=== PATIENT | female | born 1955 | race Caucasian/White ===

== ENCOUNTER 2025-07-13 09:28 | Inpatient (IN) | payer MEDICARE ==
[2025-07-12 08:51] LABS: Hematocrit 40.9 % (33.0-51.0); Hemoglobin 13.9 g/dL (11.5-16.0); Mean Corpuscular HGB Conc 34.0 g/dL (31.5-36.5); Mean Corpuscular Volume 93 fL (80-100); NRBC ABSOLUTE 0.00 K/mm3 (0.00-0.02); NRBC Auto 0.0 /100 WBC (0.0-0.2); Platelet Count 315 K/mm3 (150-400); RDW Coefficient Variation 12.5 % (11.7-14.2); RDW Standard Deviation 42.3 fL (35.1-46.3)
[2025-07-12 09:04] LABS: Prothrombin Time Results 11.3 Sec (9.7-11.5)
[2025-07-12 09:58] LABS: Anion Gap 7.0 mmol/L (3-11); Blood Urea Nitrogen 27.0 mg/dL (8-24); CO2, Blood 29.0 mmol/L (21-32); Calcium, Blood 9.3 mg/dL (8.5-10.1); Chloride, Blood 105.0 mmol/L (98-108); Creatinine, Blood 1.0 mg/dL (0.40-1.00); Glucose, Blood 117.0 mg/dL (70-99); Potassium, Blood 3.4 mmol/L (3.5-5.5); Sodium, Blood 138.0 mmol/L (136-145)
[2025-07-13] VITALS (19 sets, daily range): BP systolic 121–172; BP diastolic 64–89
[~2025-07-13] VITALS: Ht 165.1 cm; Wt 110.5 kg
[~2025-07-13 09:28] MED LIST: ATOR20 PO; CALCIUM 600-VI1 EAC7 PO; DYAZIDE 37.5-21 EACH PO; IBUP200 PO; LETR2.5 PO; LORA10ER PO; MELO7.5 PO; Vitamin D1000 UNI1 PO
--- NOTE | 2025-07-13 10:00 | NUR ---
Ambulatory in Day Surgery History, Chart, Medications and Allergies reviewed before start of procedure. Pre-Op teaching done. Pt verbalizes understanding.
[2025-07-13] MEDS ORDERED: Rocuronium Bromide 10 MG/ML 5ML Injection IV ONE ×2 (10:13→11:10)
[2025-07-13] MEDS ORDERED: FentaNYL Citrate 50 MCG/ML 2 ML Injection ONE ×2 (10:13→13:42)
[2025-07-13] MEDS ORDERED: Dexamethasone Sod Phos 10 MG/ML 1ML VIAL ONE (10:14)
[2025-07-13] MEDS ORDERED: Ondansetron HCl 2 MG / ML 2ML Vial ONE (10:14)
[2025-07-13] MEDS ORDERED: Bupivacaine 0.25% Epi 1:200000 30 ML Vial ONE (10:22)
[2025-07-13] MEDS ORDERED: CeFAZolin Sodium 2,000 MG in NS 100 ML IV SCH (10:35)
[2025-07-13] MEDS ORDERED: Phenylephrine HCl 100 MCG/ML-NS 10MLSYR (1MG/10ML) ONE (12:22)
[2025-07-13] MEDS ORDERED: Sugammadex Sodium 200 MG/2ML SDV (100 MG/ML) ONE (12:53)
[2025-07-13] MEDS ORDERED: Magnesium Hydroxide Conc 10 ML UDC PO PRN (13:40)
[2025-07-13] MEDS ORDERED: HYDROmorphone HCl/Pf 1MG SYR ONE (13:52)
[2025-07-13] MEDS ORDERED: OxyCODONE 5 mg/Acetamin 325 mg TABLET PO PRN (14:20)
--- NOTE | 2025-07-13 14:31 | NUR ---
ARRIVAL TO SURGICAL FLOOR PT ARRIVED TO FLOOR VIA GURCELESTE. A&O x4, VSS. HRR, LUNGS SOUNDS CLEAR. LAP SITES x6, C/D/I. BOWEL TONES HYPOACTIVE. WHITT CATH IN PLACE, DRAINING YELLOW URINE. DENIES N/V, IV FLUIDS INFUSING PER EMAR. DRINKS GIVEN, CALL LIGHT WITHIN REACH.
--- NOTE | 2025-07-13 17:50 | NUR ---
SHIFT SUMMARY POD 0 R PARTIAL NEPHRECTOMY. A&O x4, COMMUNICATED NEEDS EFFECTIVELY. VSS, HRR, LUNGS CLEAR. ABD LAP SITES x6, C/D/I. ABD TENDERNESS w/MINIMAL PAIN. ON CLEAR LIQUID DIET, TOLERATING WELL. IVF INFUSING PER EMAR. WHITT CATH DRAINING CLEAR YELLOW URINE. AMBULATES w/SBA, UP TO CHAIR CURRENTLY. CALL LIGHT WITHIN REACH.
[2025-07-13] MEDS ORDERED: Lactobacil 2-S.Thermo-Bifido 1 1 Cap PO SCH (21:00)
[2025-07-14 00:11] VITALS: BP 155/77
[2025-07-14 03:13] VITALS: BP 135/61
[2025-07-14 06:13] LABS: Hematocrit 38.4 % (33.0-51.0); Hemoglobin 13.1 g/dL (11.5-16.0); Mean Corpuscular HGB Conc 34.1 g/dL (31.5-36.5); Mean Corpuscular Volume 92 fL (80-100); NRBC ABSOLUTE 0.00 K/mm3 (0.00-0.02); NRBC Auto 0.0 /100 WBC (0.0-0.2); Platelet Count 323 K/mm3 (150-400); RDW Coefficient Variation 12.5 % (11.7-14.2); RDW Standard Deviation 42.2 fL (35.1-46.3)
[2025-07-14 06:35] LABS: Anion Gap 10.0 mmol/L (3-11); Blood Urea Nitrogen 23.0 mg/dL (8-24); CO2, Blood 27.0 mmol/L (21-32); Calcium, Blood 9.2 mg/dL (8.5-10.1); Chloride, Blood 102.0 mmol/L (98-108); Creatinine, Blood 1.15 mg/dL (0.40-1.00); Glucose, Blood 159.0 mg/dL (70-99); Potassium, Blood 3.6 mmol/L (3.5-5.5); Sodium, Blood 135.0 mmol/L (136-145)
--- NOTE | 2025-07-14 06:49 | NUR ---
SHIFT SUMMARY POD 1 S/P PARTIAL NEPHRECTOMY. PT A/OX4 WITH VSS. ABD INCISIONS/SITES CDI, NO DRAINAGE NOTED; CLOSED WITH TISSUE ADHESIVE. PT JASON CL DIET, DENIES N/V. DENIED NEED FOR PAIN MEDICATIONS. UP IN CHAIR AND AMBULATING SEVERAL TIMES IN HALLWAY. IVF INFUSING PER ORDERS. WHITT TO GRAVITY GRAIN, URINE LIGHT YELLOW IN COLOR. PT DENIES NEEDS, IS AWAKE IN ROOM WITH CALL LIGHT IN REACH
[2025-07-14 07:54] VITALS: BP 151/63
[2025-07-14] MEDS ORDERED: Calcium/Vit D 600 mg-400 Unit Tab PO SCH (09:00)
[2025-07-14] MEDS ORDERED: Triamter/HCthiazide 37.5/25 MG 1 Tab PO SCH (09:00)
[2025-07-14] MEDS ORDERED: Cholecalciferol 1000 Unit Tablet (=25MCG) PO SCH (09:00)
[2025-07-14 15:50] VITALS: BP 153/66
--- NOTE | 2025-07-14 17:40 | NUR ---
SHIFT SUMMARY POD 1 L PARTIAL NEPHRECTOMY. A&O x4, COMMUNICATES NEEDS EFFECTIVELY & CALLS APPROPRIATELY. VSS, HRR, LUNGS CLEAR. ABD LAP SITES x6, C/D/I. ABDOMINAL TENDERNESS w/PALPATION, BUT MINIMAL PAIN. REPORTS GAS PAINS, PASSING GAS & AWAITING POST OP BM. ADVANCED DIET TO REGULAR, TOLERATING WELL. WHITT CATH DRAINING CLEAR YELLOW URINE. AMBULATES IN HALLWAY & ROOM INDEPENDENTLY. CALL LIGHT WITHIN REACH.
[2025-07-14 19:33] VITALS: BP 164/69
--- NOTE | 2025-07-14 23:02 | NUR ---
TRANSFER PT ARRIVED FROM PCU2 TO SURGICAL FLOOR 218 AT APPROX 2130 TODAY. BEDSIDE REPORT COMPLETED FROM Consuelo RN PRIOR TO TRANSFER. PT A/OX4 WITH VSS. DENIES PAIN, SOB, CHEST PAIN OR N/T. OSTOMY APPLIANCE CDI, STOMA RED IN COLOR. JOLLY TO MIDLINE INTACT, OLD SHADOWING NOTED AND DRESSING COMPRESSED. JASON FULL LIQUID, DENIES N/V. HR SR AT 68BPM, PER HOME WORKER. PUREWICK IN PLACE TO SUCTION. IV NUTRITION INFUSING PER ORDERS TO EX DWELL, DRESSING CDI. PT HAS CALL LIGHT IN REACH AND DENIES NEEDS.
[2025-07-15 03:53] VITALS: BP 153/69
--- NOTE | 2025-07-15 03:56 | NUR ---
0354- CALLED DR FALCON ANSWERING SERVICE TO INFORM PROVIDER OF PT FEVER. PT HAS NO FEVER WEIGH TANK OPERATOR ORDERED.
--- NOTE | 2025-07-15 04:16 | NUR ---
UPDATE RN AND CHEF SAUCIER IN ROOM TO ASSESS PATIENT'S IV IN LEFT FA. PT APPEARED FLUSHED AND WARM TO TOUCH. REPORTS PAIN AT TOLERABLE LEVEL AND DENIED SX OF FEVER OR DISTRESS. PT HAD ORAL TEMP OF 102.3. TEMP TURNED DOWN IN ROOM, BLANKETS REMOVED, ICE PACK APPLIED TO NECK AND ENCOURAGED PO INTAKE. IV REMOVED FROM LEFT ARM DUE TO INFILTRATION SX. NEW IV STARTED BY THIS RN IN RIGHT FA. IVF RESTARTED. FRESH WATER PROVIDED. CHARGE NOTIFIED DR. FALCON ANSWERING SERVICE, AWAITING RETURN CALL TO UPDATE PROVIDER AND FOR POSSIBLE ORDERS. PT DENIES NEEDS, IS RESTING IN BED WITH CALL LIGHT IN REACH.
--- NOTE | 2025-07-15 05:45 | NUR ---
SHIFT SUMMARY POD 2 R PARTIAL NEPHRECTOMY. A&O X4. 6 LAP SITES C/D/I. PT C/O PAIN DURING SHIFT, MEDICATED AND MANAGED PER EMAR. PT REPORTS PASSING FLATUS AWAITING POSTOP BM. PERI SANCHEZ'D PER ORDER. PT DEVELOPED A FEVER AT 0400 COOLING MEASURES IMPLEMENTED. PT AFEBRILE AT THIS TIME. PT INDEPENDENT IN ROOM. PT RESTING COMFORTABLY IN BED WITH EYES CLOSED. CALL LIGHT WITHIN REACH. CARE PLAN ONGOING.
--- NOTE | 2025-07-15 06:41 | NUR ---
PROVIDER UPDATED DR. FALCON UPDATED ON PATIENT STATUS, SEE PREVIOUS NOTE. NEW ORDERS FOR CHEST XRAY, UA WITH CX IF IND, AND ZOSYN 3.375MG Q8 OBTAINED. PROVIDER PLANS FOR PATIENT TO STAY ANOTHER DAY AT LEAST. WILL NOTIFY PATIENT AND IMPLEMENT ORDERS.
[2025-07-15 07:02] LABS: Hematocrit 33.7 % (33.0-51.0); Hemoglobin 11.7 g/dL (11.5-16.0); Mean Corpuscular HGB Conc 34.7 g/dL (31.5-36.5); Mean Corpuscular Volume 93 fL (80-100); NRBC ABSOLUTE 0.00 K/mm3 (0.00-0.02); NRBC Auto 0.0 /100 WBC (0.0-0.2); Platelet Count 233 K/mm3 (150-400); RDW Coefficient Variation 12.6 % (11.7-14.2); RDW Standard Deviation 42.9 fL (35.1-46.3)
[2025-07-15 07:23] LABS: Anion Gap 8.0 mmol/L (3-11); Blood Urea Nitrogen 17.0 mg/dL (8-24); CO2, Blood 27.0 mmol/L (21-32); Calcium, Blood 8.8 mg/dL (8.5-10.1); Chloride, Blood 102.0 mmol/L (98-108); Creatinine, Blood 1.21 mg/dL (0.40-1.00); Glucose, Blood 129.0 mg/dL (70-99); Potassium, Blood 3.2 mmol/L (3.5-5.5); Sodium, Blood 134.0 mmol/L (136-145)
[2025-07-15 07:40] VITALS: BP 142/66
[2025-07-15] MEDS ORDERED: Piperacillin/Tazobactam Sod 3.375 GM in NS 100 ML IV SCH (08:00)
[2025-07-15 08:44] LABS: Source, Urine Voided
[2025-07-15 09:01] LABS: Bilirubin, Urine Neg (Neg); Color, Urine Yellow (P-Yellow); Glucose Qualitative, Urine Neg (Neg); Ketones, Urine Neg (Neg); Leukocyte Esterase, Urine 1+ (Neg); Protein, Urine Neg (Neg); Specific Gravity, Urine 1.005 (1.003-1.022); Urobilinogen, Urine NORM (Normal)
[2025-07-15 09:12] LABS: Red Blood Cells, Urine Not Seen /hpf (0-2); White Blood Cells, Urine 0-2 /hpf (0-5)
[2025-07-15 14:39] VITALS: BP 164/82
--- NOTE | 2025-07-15 18:46 | NUR ---
SUMMARY: PT IS POD2 R PARTIAL NEPHRECTOMY. A/O, VSS. ANTIBIOTICS INFUSED, PT VOIDING, AFIBRILE. NO CONCERNS, PT TO DC TOMORROW.
[2025-07-15 19:56] VITALS: BP 180/77
[2025-07-16 04:07] VITALS: BP 175/69
[2025-07-16 04:20] VITALS: BP 140/65
--- NOTE | 2025-07-16 04:28 | NUR ---
SHIFT SUMMARY DIEUDONNE WAS ALERT AND FULLY ORIENTED ON ASSESSMENT. PT DENIES PAIN/ NAUSEA/ SOB/ CHEST PRESSURE. PT TEMP DID ELEVATE TO A TMAX OF 99.8 TONIGHT TAKEN WITH ORAL THERMOMETER. PT WAS NOTED TO HAVE HIGH B/P, RETAKEN WITH APPROPRIATE SIZED CUFF AND A MORE NORMAL PRESSURE WAS RECORDED. PT IND IN ROOM, NO OTHER CHANGES NOTED TO PT CONDITION.
[2025-07-16 07:05] VITALS: BP 136/67
[2025-07-16] MEDS ORDERED: AMOCLA875 PO ×2 (08:07)
[2025-07-16] MEDS ORDERED: DOCU100 PO ×2 (08:09)
[2025-07-16] MEDS ORDERED: Percocet 5-3251 EACH PO ×2 (08:10)
--- NOTE | 2025-07-16 09:00 | NUR ---
Pt laying in bed awake a/ox3, plesasant and coopertive with care, follows commands well, denies pain, states she feels good and hopes to go home, lungs are clear t/o, resp even and unlabored, no cough noted, on r/a, hrr, no edema noted, ppp+2, cap refill<3 sec, vs stable, afebrile, piv to rfa site is clear and patent, btx4, abd flat soft nontender, voids without diff, skin c/w/d, has surgical lap sites that are c/d/i, germaine almeida, call light in reach.
--- NOTE | 2025-07-16 11:40 | NUR ---
pt piv was removed intact, went over discharge instructions she verbalized understanding, new medications were sent to her pharmacy, left via wheelchair with premix concrete batcher in attendence with all her belongings.
== END 2025-07-16 11:40 | disposition home or self-care (01) | DRG 657 ==
LOC: ORSCMMR 09:28 → ORD 10:30 → ORSCMMR 11:15 → SURS 13:31 → ORSCMMR 13:31 → SURS 14:10
PROVIDERS: ADMIT Urology
PROC: 8E0W4CZ Robotic Assisted Procedure of Trunk Region, Percutaneous Endoscopic Approach (ICD-10-PCS; 2025-07-13)
PROC: 0T9B70Z Drainage of Bladder with Drainage Device, Via Natural or Artificial Opening (ICD-10-PCS; 2025-07-13)
PROC: 0TB04ZZ Excision of Right Kidney, Percutaneous Endoscopic Approach (ICD-10-PCS; principal; 2025-07-13 11:15)
DX: C64.1 Malignant neoplasm of right kidney, except renal pelvis (principal); Z68.41 Body mass index [BMI] 40.0-44.9, adult; E66.9 Obesity, unspecified; I10 Essential (primary) hypertension; Z88.2 Allergy status to sulfonamides
CPT/HCPCS: 36415; 71045; 80048; 81001; 85027; 85610; 85730; 86850; 86900; 86901; 87077; 87086; 87186; 88307; A9270; J0690; J1100; J1171; J2371; J2405; J2543; J2704; J3010; J7120

== ENCOUNTER 2025-07-20 12:28 | Emergency (ER) | payer MEDICARE ==
[~2025-07-20] VITALS: Ht 165.1 cm; Wt 112.9 kg
[~2025-07-20 12:28] MED LIST changes: +AMOCLA875 PO; +DOCU100 PO; +Percocet 5-3251 EACH PO
[2025-07-20 13:08] VITALS: BP 144/86
[2025-07-20] MEDS ORDERED: Deltasone 10 mg10 MG PO (15:12)
== END 2025-07-20 15:16 | disposition home or self-care (01) ==
LOC: ER 12:28
DX: M10.9 Gout, unspecified (principal); Z88.2 Allergy status to sulfonamides; Z79.899 Other long term (current) drug therapy
CPT/HCPCS: 73630; 99283-25; J7512